=== PATIENT | female | born 1990 | race African-American/Black ===

== ENCOUNTER 2023-11-21 09:03 | Outpatient (CLI) | payer OTHER | END 2023-11-21 09:04 | disposition home or self-care (01) | LOC: ULT 09:03 | PROVIDERS: ATTEND Nurse Practitioner Family | DX: E21.3 Hyperparathyroidism, unspecified (principal) | CPT/HCPCS: 76536 ==

== ENCOUNTER 2023-12-20 12:49 | Outpatient (CLI) | payer OTHER | END 2023-12-20 12:50 | disposition home or self-care (01) | LOC: NM 12:49 | PROVIDERS: ATTEND Nurse Practitioner Family | DX: E21.3 Hyperparathyroidism, unspecified (principal) | CPT/HCPCS: 78072; A9500 ==